=== PATIENT | male | born 1955 | race Caucasian/White ===

== ENCOUNTER → 2016-12-13 | Outpatient (CLI) | payer OTHER ==
--- NOTE | 2016-12-13 20:50 | DIAGNOSTIC IMAGING REPORT ---
KUB HISTORY: Right-sided kidney stones. COMPARISON: None. FINDINGS: The bowel gas pattern is unremarkable. There are no dilated loops of small bowel to suggest an obstruction. The renal shadows are partially obscured by overlying bowel gas. No definite left renal calculi. There is a 3 mm stone within the upper pole the right kidney. Cholecystectomy. No ureteral calculi. Calcifications in the deep pelvis are nonspecific but favor phleboliths. No pneumoperitoneum or pneumatosis. IMPRESSION: Right-sided nephrolithiasis. No ureteral calculi identified. Electronically signed by: Murtaza Ladd M.D. 12/13/2016 8:48 PM Dictated Date/Time: 12/13/2016 8:47 PM
== END | disposition home or self-care (01) ==
LOC: C.RAD 20:18
PROVIDERS: ATTEND Urology
DX: N20.0 Calculus of kidney (principal)